=== PATIENT | male | born 1990 | race African-American/Black ===

== ENCOUNTER 2022-11-10 11:49 | Emergency (ER) | payer OTHER ==
[~2022-11-10] VITALS: Ht 182.9 cm; Wt 105.0 kg
[~2022-11-10 11:49] MED LIST: CLARITIN
[2022-11-10] MEDS ORDERED: ACETAMINOPHEN 650MG/20.3ML UDC PO ONE (12:30)
[2022-11-10 12:37] VITALS: BP 155/80
== END 2022-11-10 15:56 | disposition home or self-care (01) ==
LOC: ER 11:51
DX: N50.819 Testicular pain, unspecified (principal)
CPT/HCPCS: 76870; 93976; 99284; Z7610